=== PATIENT | male | born 1995 | race Hispanic/Latino ===

== ENCOUNTER 2019-03-08 19:44 | Emergency (ER) | payer SELFPAY | END 2019-03-08 21:15 | disposition home or self-care (01) | DRG 563 | LOC: ED 20:19 | DX: S39.012A Strain of muscle, fascia and tendon of lower back, initial encounter (principal); X50.3XXA Overexertion from repetitive movements, initial encounter; X50.0XXA Overexertion from strenuous movement or load, initial encounter ==